=== PATIENT | male | born 1955 | race Caucasian/White ===

== ENCOUNTER 2016-08-03 20:42 | Emergency (ER) | payer MEDICAID, OTHER ==
[2016-08-03] MEDS ORDERED: ACETAMINOPHEN 325 MG TAB As Ordered ONE (22:04)
[2016-08-03] MEDS ORDERED: NORCO 5/325MG TABLET (BULK) As Ordered ONE (23:54)
[2016-08-03] MEDS ORDERED: METHOCARBAMOL 500 MG TAB As Ordered ONE (23:54)
--- NOTE | 2016-08-04 00:05 | EDDOCDS ---
Physician Documentation [facility] Name: Delon Verdugo Age: 61 yrs Sex: Male : 1955 Arrival Date: 08/03/2016 Time: 20:42 Bed TR1 Private MD: Arely Stafford A. Disposition: 08/03/16 23:28 Discharged to Home/Self Care. Impression: Low back pain, Contusion of left hip, Contusion of left shoulder. - Condition is Stable. - Discharge Instructions: Back Pain, Adult, Contusion. - Prescriptions for [place] 5- 325 mg Oral Tablet - take 1 tablet by ORAL route every 6 hours As needed MDD: 4 tabs; 6 tablet. Robaxin- 750 750 mg Oral Tablet - take 1 tablet by ORAL route every 6 hours As needed; 40 tablet. - Medication Reconciliation, Local Pharmacy Hours form. - Follow up: Arely Stafford; When: 2 - 3 days; Reason: Recheck today's complaints, Continuance of care. - Problem is new. - Symptoms have improved. - Notes: USE MEDICATIONS INSTRUCTED, FOLLOW UP WITH YOUR DOCTOR ON FRIDAY, RETURN TO THE ER IF THE SYMPTOMS WORSEN OR BECOME CONCERNING Historical: - Allergies: no known allergies; - Home Meds: 1. Glucophage 500 mg Oral tab daily (Last dose: 08/03/2016 07:00) 2. aspirin 81 mg Oral tab 1 tab once daily (Last dose: 08/03/2016 07:00) 3. Tylenol 325 mg Oral tab 2 tabs every 6 hours (Last dose: 08/03/2016 08:00) - PMHx: Diabetes - NIDDM: controlled; - PSHx: Appendectomy; HERNIA REPAIR; - Social history: Smoking status: Patient states was never smoker of tobacco. Patient/guardian denies using alcohol, street drugs, No barriers to communication noted, The patient speaks fluent Cuban, Speaks appropriately for age. - Family history: Not pertinent. - : The pt / caregiver states he / she is not on anticoagulants. Home medication list is obtained from the patient. - Exposure Risk Screening:: None identified. Vital Signs: 08/03 20:43 BP 123 / 75; Pulse 83; Resp 16; Temp 96.9(O); Pulse Ox 96% on R/A; Weight 111.13 kg / elp 245 lbs (R); Height 5 ft. 5 in. (165.10 cm) (R); 08/04 00:04 BP 132 / 58; Pulse 70; Resp 20; Temp 98.3(O); Pulse Ox 96% on R/A; Pain 4/10; tm5 08/03 20:43 Body Mass Index 40.77 (111.13 kg, 165.10 cm) elp MDM: 08/03 22:02 Acetaminophen Tablet 650 mg PO once ordered. ck7 22:04 Hip,AP,LAT to include Pelvis Ordered. EDMS 22:04 Spine. Lumbosacral, Complete Ordered. EDMS 22:04 Shoulder, Complete Ordered. EDMS 23:29 HYDROcodone-acetaminophen 4 pack- 5 mg-325 mg 1 packets PO Per package directions; ck7 Dispense with patient. 1 po q4h prn for pain ordered. 23:29 Methocarbamol 1 grams PO once; please dispense to go home with ordered. ck7 23:46 Financial registration complete. hs2 Administered Medications: 22:06 Drug: Acetaminophen 650 mg [acetaminophen 325 mg tablet (2 tabs)] Route: PO; ttb 08/04 00:00 Follow up: Response: No Adverse Reaction; Pain is decreased tm5 00:00 Drug: Methocarbamol 1 grams [methocarbamol 500 mg tablet (2 tabs)] {Note: given to pt tm5 to take at home due to him driving himself home .} Route: PO; 00:01 Follow up: Response: Med's dispensed home tm5 00:02 Drug: HYDROcodone-acetaminophen 4 pack- 1 packets [hydrocodone 5 mg-acetaminophen 325 tm5 mg tablet (1 tabs)] {Co-Signature: af2 (Rose Barroso RN).} {Note: dispensed home with pt due to him driving himself home.} Route: PO; 00:02 Follow up: Response: Med's dispensed home tm5 Signatures: Dispatcher [employer] EDChauncey Bryan, RPA-C RPA-Cck7 Shirley Esteban RN RN ttb Jayda Huynh, Reg Reg hs2 Cadence Gillette RN RN tm5 Rose Barroso RN af2 MTDD
--- NOTE | 2016-08-04 00:06 | EDDOCDS ---
Nurse's Notes [facility] Name: Delon Verdugo Age: 61 yrs Sex: Male : 1955 Arrival Date: 08/03/2016 Time: 20:42 Bed TR1 Private MD: Arely Stafford A. Diagnosis: Low back pain;Contusion of left hip;Contusion of left shoulder Presentation: 08/03 20:59 Presenting complaint: Patient states: pt fell at work on Friday. Left hip and left ttb shoulder pain since them. Adult Sepsis Screening: The patient does not have new or worsening altered mentation. Patient's respiratory rate is less than 22. Systolic blood pressure is greater than 100. Patient has a qSOFA score of 0- Negative Sepsis Screen. Suicide/Homicide risk assessment- the patient denies having any suicidal and/or homicidal ideations and does not present with any other emotional, behavioral or mental health complaints. Status: Patient is not a environmental services aide or dependent. Transition of care: patient was not received from another setting of care. 20:59 Acuity: DANIEL Level 4 ttb 20:59 Method Of Arrival: Walkin/Carried/Asstd ttb Triage Assessment: 21:01 General: Appears in no apparent distress, well nourished, well groomed, Behavior is ttb appropriate for age, cooperative, pleasant. Pain: Location: left hip. HIV screening NA for this visit Offered previously. Neurological: Level of Consciousness is awake, alert. Cardiovascular: Chest pain is denied. Respiratory: No deficits noted. Airway is patent Denies cough, shortness of breath. Derm: Skin is normal. Musculoskeletal: Range of motion limited in left hip d/t pain. Injury Description: pt fell from standing. Historical: - Allergies: no known allergies; - Home Meds: 1. Glucophage 500 mg Oral tab daily (Last dose: 08/03/2016 07:00) 2. aspirin 81 mg Oral tab 1 tab once daily (Last dose: 08/03/2016 07:00) 3. Tylenol 325 mg Oral tab 2 tabs every 6 hours (Last dose: 08/03/2016 08:00) - PMHx: Diabetes - NIDDM: controlled; - PSHx: Appendectomy; HERNIA REPAIR; - Social history: Smoking status: Patient states was never smoker of tobacco. Patient/guardian denies using alcohol, street drugs, No barriers to communication noted, The patient speaks fluent Uzbek, Speaks appropriately for age. - Family history: Not pertinent. - : The pt / caregiver states he / she is not on anticoagulants. Home medication list is obtained from the patient. - Exposure Risk Screening:: None identified. Screenin/12 00:03 Screening information is obtained from the patient. Fall risk: No risks identified. tm5 Assistance ADL's: requires no assistance with activities of daily living. Abuse/DV Screen: The patient / caregiver reports he/she is: not in a situation that causes fear, pain or injury. Nutritional screening: No deficits noted. Advance Directives: Currently, there is no health care proxy. There is no active DNR order. home support is adequate. Vital Signs: 08/03 20:43 BP 123 / 75; Pulse 83; Resp 16; Temp 96.9(O); Pulse Ox 96% on R/A; Weight 111.13 kg elp (R); Height 5 ft. 5 in. (165.10 cm) (R); 08/04 00:04 BP 132 / 58; Pulse 70; Resp 20; Temp 98.3(O); Pulse Ox 96% on R/A; Pain 4/10; tm5 08/03 20:43 Body Mass Index 40.77 (111.13 kg, 165.10 cm) el Vitals: 08/03 20:43 Log In Time: August 03, 2016 at 20:41. [facility] ED Course: 20:43 Patient visited by Sheila Arndt PCA. elp 20:43 Arely Stafford is Private Physician. elp 20:43 Patient moved to Waiting elp 20:44 Patient visited by Sheila Arndt PCA. elp 20:44 Patient moved to Pre RCE elp 21:00 Triage Initiated ttb 21:18 Patient moved to Triage 3 rs3 21:20 Patient moved to Triage 2 kmg1 21:47 [facility] ck7 21:47 Bk Roger DO is Attending Physician. ck7 21:47 Patient visited by Chauncey Nicholson RPA-C. ck7 22:11 Patient moved to TR4 kmg1 22:55 Patient visited by Chauncey Nicholson RPA-C. ck7 23:28 Patient visited by Chauncey Nicholson RPA-C. ck7 23:28 Arely Stafford is Referral Physician. ck7 23:50 Patient moved to PR1 / 25 kmg1 02 00:01 Patient moved to TR1 tm5 00:03 The patient / caregiver is instructed regarding the plan of care and ED course. tm5 00:03 No IV's were initiated during this patient's visit. No procedures done that require tm5 assistance. Administered Medications: 08/03 22:06 Drug: Acetaminophen 650 mg [acetaminophen 325 mg tablet (2 tabs)] Route: PO; ttb 02 00:00 Follow up: Response: No Adverse Reaction; Pain is decreased tm5 00:00 Drug: Methocarbamol 1 grams [methocarbamol 500 mg tablet (2 tabs)] {Note: given to pt tm5 to take at home due to him driving himself home .} Route: PO; 00:01 Follow up: Response: Med's dispensed home tm5 00:02 Drug: HYDROcodone-acetaminophen 4 pack- 1 packets [hydrocodone 5 mg-acetaminophen 325 tm5 mg tablet (1 tabs)] {Co-Signature: af2 (Rose Barroso RN).} {Note: dispensed home with pt due to him driving himself home.} Route: PO; 00:02 Follow up: Response: Med's dispensed home tm5 Order Results: There are currently no results for this order. Outcome: 08/03 23:28 Discharge ordered by Provider. 08/04 00:03 Discharge Assessment: Patient awake, alert and oriented x 3. No cognitive and/or tm5 functional deficits noted. Patient verbalized understanding of disposition instructions. patient administered narcotics - no. The following High Risk Discharge criteria are identified: None. Discharged to home ambulatory. Condition: good Condition: stable. No special radiology studies were completed. Property :Personal belongings accompany Pt. 00:04 Patient left the ED. tm5 Signatures: Sarah Howell RN RN [facility] [place] Kate Castro RN RN rs3 Chauncey Nicholson RPA-C RPA-Cck7 Shirley Esteban RN RN ttb Sheila Arndt, URGENT CARE PHYSICIAN ASSISTANT URGENT CARE PHYSICIAN ASSISTANT elp Matice,Cadence,RN RN tm5 Rose Barroso RN af2 SOPHIAD
--- NOTE | 2016-08-04 13:53 | REP ---
LUMBAR SPINE COMPLETE: 08/03/2016. Clinical history: Back pain. Comparison: 10/15/2006. Findings: Five views are provided. There appear to be some metal anchors for ventral mesh hernia graft overlying the lower lumbar region as a new finding compared to 2006. Pedicle, spinous and transverse processes are intact. Lower thoracic levels and visualized ribs without acute finding. There are marginal osteophytes at multiple levels in the lumbar and lower thoracic spine. SI joints, sacral ala and foramina intact. There is facet arthritis at L4-5 and L5 and S1. No spondylolysis or spondylolisthesis noted. The normal lordosis maintained. Disc space and vertebral body heights normal. Impression: 1. Degenerative disc changes with small marginal osteophytes lower lumbar and lower thoracic region without compression deformity or disc space narrowing. 2. Facet arthropathy lower lumbar spine. No spondylolysis. Signed by Christiano Portillo MD 08/04/2016 07:23 P
--- NOTE | 2016-08-04 13:54 | REP ---
AP PELVIS AND LEFT HIP: 08/03/2016. Clinical history: Hip pain. Findings: There were no prior studies. The AP pelvis shows pelvic ring intact. SI joints, sacral ala and foramina intact. Iliac wings, acetabuli, pubic rami and symphysis pubis normal. There is slight narrowing of the hip joint spaces bilaterally without fracture, AVN or focal lesion. Left hip: The dedicated views of the left hip shows slight spurring of the femoral head on the frog-leg view representing very minimal degenerative change along with that narrowing of the joint space, however, there is no AVN, fracture or destructive lesion. No abnormal soft tissue calcifications. Impression: 1. Degenerative changes of the hip and lower lumbar spine without fracture, avulsion, AVN or other acute finding. Signed by Christiano Portillo MD 08/04/2016 07:24 P
--- NOTE | 2016-08-04 13:55 | REP ---
LEFT SHOULDER, COMPLETE: 08/03/2016. Clinical history: Shoulder pain. Findings: No prior study. AC joint shows narrowing inferiorly with spurs inferiorly and superiorly. No elevation of the clavicle in relationship to the acromion. No clavicular, rib, scapula or humeral fracture visible. There are minor degenerative changes at the inferior aspect of the glenohumeral joint without subluxation or dislocation. No abnormal soft-tissue calcification. Impression: 1. AC joint and glenohumeral joint degenerative changes as described. No fracture, avulsion or other acute finding. Signed by Christiano Portillo MD 08/04/2016 07:24 P
--- NOTE | 2016-08-06 01:05 | EDDOCDS ---
Physician Documentation [facility] Name: Delon Verdugo Age: 61 yrs Sex: Male : 1955 Arrival Date: 08/03/2016 Time: 20:42 Bed TR1 Private MD: Arely Stafford A. Disposition: 08/03/16 23:28 Discharged to Home/Self Care. Impression: Low back pain, Contusion of left hip, Contusion of left shoulder. - Condition is Stable. - Discharge Instructions: Back Pain, Adult, Contusion. - Prescriptions for [place] 5- 325 mg Oral Tablet - take 1 tablet by ORAL route every 6 hours As needed MDD: 4 tabs; 6 tablet. Robaxin- 750 750 mg Oral Tablet - take 1 tablet by ORAL route every 6 hours As needed; 40 tablet. - Medication Reconciliation, Local Pharmacy Hours form. - Follow up: Arely Stafford; When: 2 - 3 days; Reason: Recheck today's complaints, Continuance of care. - Problem is new. - Symptoms have improved. - Notes: USE MEDICATIONS INSTRUCTED, FOLLOW UP WITH YOUR DOCTOR ON FRIDAY, RETURN TO THE ER IF THE SYMPTOMS WORSEN OR BECOME CONCERNING Historical: - Allergies: no known allergies; - Home Meds: 1. Glucophage 500 mg Oral tab daily (Last dose: 08/03/2016 07:00) 2. aspirin 81 mg Oral tab 1 tab once daily (Last dose: 08/03/2016 07:00) 3. Tylenol 325 mg Oral tab 2 tabs every 6 hours (Last dose: 08/03/2016 08:00) - PMHx: Diabetes - NIDDM: controlled; - PSHx: Appendectomy; HERNIA REPAIR; - Social history: Smoking status: Patient states was never smoker of tobacco. Patient/guardian denies using alcohol, street drugs, No barriers to communication noted, The patient speaks fluent Yemeni, Speaks appropriately for age. - Family history: Not pertinent. - : The pt / caregiver states he / she is not on anticoagulants. Home medication list is obtained from the patient. - Exposure Risk Screening:: None identified. Vital Signs: 08/03 20:43 BP 123 / 75; Pulse 83; Resp 16; Temp 96.9(O); Pulse Ox 96% on R/A; Weight 111.13 kg / elp 245 lbs (R); Height 5 ft. 5 in. (165.10 cm) (R); 08/04 00:04 BP 132 / 58; Pulse 70; Resp 20; Temp 98.3(O); Pulse Ox 96% on R/A; Pain 4/10; tm5 08/03 20:43 Body Mass Index 40.77 (111.13 kg, 165.10 cm) elp MDM: 08/03 22:02 Acetaminophen Tablet 650 mg PO once ordered. ck7 22:04 Hip,AP,LAT to include Pelvis Ordered. EDMS 22:04 Spine. Lumbosacral, Complete Ordered. EDMS 22:04 Shoulder, Complete Ordered. EDMS 23:29 HYDROcodone-acetaminophen 4 pack- 5 mg-325 mg 1 packets PO Per package directions; ck7 Dispense with patient. 1 po q4h prn for pain ordered. 23:29 Methocarbamol 1 grams PO once; please dispense to go home with ordered. ck7 23:46 Financial registration complete. hs2 08/04 01:05 [facility] Payment Agreement was scanned into [employer] and attached to record. hs2 17:38 T-Sheet-- Draft Copy was scanned into [employer] and attached to record. klr Administered Medications: 08/03 22:06 Drug: Acetaminophen 650 mg [acetaminophen 325 mg tablet (2 tabs)] Route: PO; ttb 08/04 00:00 Follow up: Response: No Adverse Reaction; Pain is decreased tm5 00:00 Drug: Methocarbamol 1 grams [methocarbamol 500 mg tablet (2 tabs)] {Note: given to pt tm5 to take at home due to him driving himself home .} Route: PO; 00:01 Follow up: Response: Med's dispensed home tm5 00:02 Drug: HYDROcodone-acetaminophen 4 pack- 1 packets [hydrocodone 5 mg-acetaminophen 325 tm5 mg tablet (1 tabs)] {Co-Signature: af2 (Rose Barroso RN).} {Note: dispensed home with pt due to him driving himself home.} Route: PO; 00:02 Follow up: Response: Med's dispensed home tm5 Signatures: Dispatcher [employer] EDMS Chauncey Nicholson, REANNA-C RPA-CckShirley Hernandez, RN RN ttb Jayda Huynh, Reg Reg hs2 Nirali Gascar Cadence Gillette RN RN tm5 Rose Barroso RN af2 The chart was reviewed and I authenticate all verbal orders and agree with the evaluation and treatment provided.Attachments: 01:05 [facility] Payment Agreement hs2 17:38 T-Sheet-- Draft Copy klr Chart Complete MTDD
--- NOTE | 2016-08-06 01:05 | EDDOCDS ---
Physician Documentation [facility] Name: Delon Verdugo Age: 61 yrs Sex: Male : 1955 Arrival Date: 08/03/2016 Time: 20:42 Bed TR1 Private MD: Arely Stafford A. Disposition: 08/03/16 23:28 Discharged to Home/Self Care. Impression: Low back pain, Contusion of left hip, Contusion of left shoulder. - Condition is Stable. - Discharge Instructions: Back Pain, Adult, Contusion. - Prescriptions for [place] 5- 325 mg Oral Tablet - take 1 tablet by ORAL route every 6 hours As needed MDD: 4 tabs; 6 tablet. Robaxin- 750 750 mg Oral Tablet - take 1 tablet by ORAL route every 6 hours As needed; 40 tablet. - Medication Reconciliation, Local Pharmacy Hours form. - Follow up: Arely tSafford; When: 2 - 3 days; Reason: Recheck today's complaints, Continuance of care. - Problem is new. - Symptoms have improved. - Notes: USE MEDICATIONS INSTRUCTED, FOLLOW UP WITH YOUR DOCTOR ON FRIDAY, RETURN TO THE ER IF THE SYMPTOMS WORSEN OR BECOME CONCERNING Historical: - Allergies: no known allergies; - Home Meds: 1. Glucophage 500 mg Oral tab daily (Last dose: 08/03/2016 07:00) 2. aspirin 81 mg Oral tab 1 tab once daily (Last dose: 08/03/2016 07:00) 3. Tylenol 325 mg Oral tab 2 tabs every 6 hours (Last dose: 08/03/2016 08:00) - PMHx: Diabetes - NIDDM: controlled; - PSHx: Appendectomy; HERNIA REPAIR; - Social history: Smoking status: Patient states was never smoker of tobacco. Patient/guardian denies using alcohol, street drugs, No barriers to communication noted, The patient speaks fluent Scottish, Speaks appropriately for age. - Family history: Not pertinent. - : The pt / caregiver states he / she is not on anticoagulants. Home medication list is obtained from the patient. - Exposure Risk Screening:: None identified. Vital Signs: 08/03 20:43 BP 123 / 75; Pulse 83; Resp 16; Temp 96.9(O); Pulse Ox 96% on R/A; Weight 111.13 kg / elp 245 lbs (R); Height 5 ft. 5 in. (165.10 cm) (R); 08/04 00:04 BP 132 / 58; Pulse 70; Resp 20; Temp 98.3(O); Pulse Ox 96% on R/A; Pain 4/10; tm5 08/03 20:43 Body Mass Index 40.77 (111.13 kg, 165.10 cm) elp MDM: 08/03 22:02 Acetaminophen Tablet 650 mg PO once ordered. ck7 22:04 Hip,AP,LAT to include Pelvis Ordered. EDMS 22:04 Spine. Lumbosacral, Complete Ordered. EDMS 22:04 Shoulder, Complete Ordered. EDMS 23:29 HYDROcodone-acetaminophen 4 pack- 5 mg-325 mg 1 packets PO Per package directions; ck7 Dispense with patient. 1 po q4h prn for pain ordered. 23:29 Methocarbamol 1 grams PO once; please dispense to go home with ordered. ck7 23:46 Financial registration complete. hs2 08/04 01:05 [facility] Payment Agreement was scanned into [employer] and attached to record. hs2 17:38 T-Sheet-- Draft Copy was scanned into [employer] and attached to record. klr Administered Medications: 08/03 22:06 Drug: Acetaminophen 650 mg [acetaminophen 325 mg tablet (2 tabs)] Route: PO; ttb 08/04 00:00 Follow up: Response: No Adverse Reaction; Pain is decreased tm5 00:00 Drug: Methocarbamol 1 grams [methocarbamol 500 mg tablet (2 tabs)] {Note: given to pt tm5 to take at home due to him driving himself home .} Route: PO; 00:01 Follow up: Response: Med's dispensed home tm5 00:02 Drug: HYDROcodone-acetaminophen 4 pack- 1 packets [hydrocodone 5 mg-acetaminophen 325 tm5 mg tablet (1 tabs)] {Co-Signature: af2 (Rose Barroso RN).} {Note: dispensed home with pt due to him driving himself home.} Route: PO; 00:02 Follow up: Response: Med's dispensed home tm5 Signatures: Dispatcher [employer] EDMS Chauncey Nicholson, REANNA-C RPA-CckShirley Hernandez, RN RN ttb Jayda Huynh, Reg Reg hs2 Nirali Gascar Cadence Gillette RN RN tm5 Rose Barroso RN af2 The chart was reviewed and I authenticate all verbal orders and agree with the evaluation and treatment provided.Attachments: 01:05 [facility] Payment Agreement hs2 17:38 T-Sheet-- Draft Copy klr Chart Complete MTDD
--- NOTE | 2016-08-06 01:06 | EDDOCDS ---
Nurse's Notes [facility] Name: Delon Verdugo Age: 61 yrs Sex: Male : 1955 Arrival Date: 08/03/2016 Time: 20:42 Bed TR1 Private MD: Arely Stafford A. Diagnosis: Low back pain;Contusion of left hip;Contusion of left shoulder Presentation: 08/03 20:59 Presenting complaint: Patient states: pt fell at work on Friday. Left hip and left ttb shoulder pain since them. Adult Sepsis Screening: The patient does not have new or worsening altered mentation. Patient's respiratory rate is less than 22. Systolic blood pressure is greater than 100. Patient has a qSOFA score of 0- Negative Sepsis Screen. Suicide/Homicide risk assessment- the patient denies having any suicidal and/or homicidal ideations and does not present with any other emotional, behavioral or mental health complaints. 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 Transition of care: patient was not received from another setting of care. 20:59 Acuity: DANIEL Level 4 ttb 20:59 Method Of Arrival: Walkin/Carried/Asstd ttb Triage Assessment: 21:01 General: Appears in no apparent distress, well nourished, well groomed, Behavior is ttb appropriate for age, cooperative, pleasant. Pain: Location: left hip. HIV screening NA for this visit Offered previously. Neurological: Level of Consciousness is awake, alert. Cardiovascular: Chest pain is denied. Respiratory: No deficits noted. Airway is patent Denies cough, shortness of breath. Derm: Skin is normal. Musculoskeletal: Range of motion limited in left hip d/t pain. Injury Description: pt fell from standing. Historical: - Allergies: no known allergies; - Home Meds: 1. Glucophage 500 mg Oral tab daily (Last dose: 08/03/2016 07:00) 2. aspirin 81 mg Oral tab 1 tab once daily (Last dose: 08/03/2016 07:00) 3. Tylenol 325 mg Oral tab 2 tabs every 6 hours (Last dose: 08/03/2016 08:00) - PMHx: Diabetes - NIDDM: controlled; - PSHx: Appendectomy; HERNIA REPAIR; - Social history: Smoking status: Patient states was never smoker of tobacco. Patient/guardian denies using alcohol, street drugs, No barriers to communication noted, The patient speaks fluent [place]ian, Speaks appropriately for age. - Family history: Not pertinent. - : The pt / caregiver states he / she is not on anticoagulants. Home medication list is obtained from the patient. - Exposure Risk Screening:: None identified. Screenin/12 00:03 Screening information is obtained from the patient. Fall risk: No risks identified. tm5 Assistance ADL's: requires no assistance with activities of daily living. Abuse/DV Screen: The patient / caregiver reports he/she is: not in a situation that causes fear, pain or injury. Nutritional screening: No deficits noted. Advance Directives: Currently, there is no health care proxy. There is no active DNR order. home support is adequate. Vital Signs: 08/03 20:43 BP 123 / 75; Pulse 83; Resp 16; Temp 96.9(O); Pulse Ox 96% on R/A; Weight 111.13 kg elp (R); Height 5 ft. 5 in. (165.10 cm) (R); 08/04 00:04 BP 132 / 58; Pulse 70; Resp 20; Temp 98.3(O); Pulse Ox 96% on R/A; Pain 4/10; tm5 08/03 20:43 Body Mass Index 40.77 (111.13 kg, 165.10 cm) el Vitals: 08/03 20:43 Log In Time: August 03, 2016 at 20:41. [facility] ED Course: 20:43 Patient visited by Sheila Arndt PCA. elp 20:43 Arely Stafford is Private Physician. elp 20:43 Patient moved to Waiting elp 20:44 Patient visited by Sheila Arndt PCA. elp 20:44 Patient moved to Pre RCE elp 21:00 Triage Initiated ttb 21:18 Patient moved to Triage 3 rs3 21:20 Patient moved to Triage 2 kmg1 21:47 Chauncey Nicholson R[facility]-C is [facility]. ck7 21:47 Bk Roger DO is Attending Physician. ck7 21:47 Patient visited by Chauncey Nicholson RPA-C. ck7 22:11 Patient moved to TR4 kmg1 22:55 Patient visited by Chauncey Nicholson RPA-C. ck7 23:28 Patient visited by Chauncey Nicholson RPA-C. ck7 23:28 Arely Stafford is Referral Physician. ck7 23:50 Patient moved to PR1 / 25 kmg1 0212 00:01 Patient moved to TR1 tm5 00:03 The patient / caregiver is instructed regarding the plan of care and ED course. tm5 00:03 No IV's were initiated during this patient's visit. No procedures done that require tm5 assistance. 01:05 [facility] Payment Agreement was scanned into [employer] and attached to record. hs2 13:56 Spine. Lumbosacral, Complete Returned. EDMS 13:56 Hip,AP,LAT to include Pelvis Returned. EDMS 13:56 Shoulder, Complete Returned. EDMS 17:38 T-Sheet-- Draft Copy was scanned into [employer] and attached to record. klr Administered Medications: 08/03 22:06 Drug: Acetaminophen 650 mg [acetaminophen 325 mg tablet (2 tabs)] Route: PO; ttb 08/04 00:00 Follow up: Response: No Adverse Reaction; Pain is decreased tm5 00:00 Drug: Methocarbamol 1 grams [methocarbamol 500 mg tablet (2 tabs)] {Note: given to pt tm5 to take at home due to him driving himself home .} Route: PO; 00:01 Follow up: Response: Med's dispensed home tm5 00:02 Drug: HYDROcodone-acetaminophen 4 pack- 1 packets [hydrocodone 5 mg-acetaminophen 325 tm5 mg tablet (1 tabs)] {Co-Signature: af2 (Rose Barroso RN).} {Note: dispensed home with pt due to him driving himself home.} Route: PO; 00:02 Follow up: Response: Med's dispensed home tm5 Order Results: Radiology Order: Hip,AP,LAT to include Pelvis Test: Hip,AP,LAT to include Pelvis REASON FOR EXAMINATION: Deformity/Swelling; AP PELVIS AND LEFT HIP: 08/03/2016.; ; Clinical history: Hip pain.; ; Findings: There were no prior studies. The AP pelvis shows pelvic ring intact.; SI joints, sacral ala and foramina intact. Iliac wings, acetabuli, pubic rami; and symphysis pubis normal. There is slight narrowing of the hip joint spaces; bilaterally without fracture, AVN or focal lesion.; ; Left hip: The dedicated views of the left hip shows slight spurring of the; femoral head on the frog-leg view representing very minimal degenerative change; along with that narrowing of the joint space, however, there is no AVN, fracture; or destructive lesion. No abnormal soft tissue calcifications.; ; Impression:; ; 1. Degenerative changes of the hip and lower lumbar spine without fracture,; avulsion, AVN or other acute finding.; ; ; Signed by; Christiano Portillo MD 08/04/2016 07:24 P; Radiology Order: Spine. Lumbosacral, Complete Test: Spine. Lumbosacral, Complete REASON FOR EXAMINATION: Deformity/Swelling; LUMBAR SPINE COMPLETE: 08/03/2016.; ; Clinical history: Back pain.; ; Comparison: 10/15/2006.; ; Findings: Five views are provided. There appear to be some metal anchors for; ventral mesh hernia graft overlying the lower lumbar region as a new finding; compared to 2006. Pedicle, spinous and transverse processes are intact. Lower; thoracic levels and visualized ribs without acute finding. There are marginal; osteophytes at multiple levels in the lumbar and lower thoracic spine. SI; joints, sacral ala and foramina intact. There is facet arthritis at L4-5 and L5; and S1. No spondylolysis or spondylolisthesis noted. The normal lordosis; maintained.; ; Disc space and vertebral body heights normal.; ; Impression:; ; 1. Degenerative disc changes with small marginal osteophytes lower lumbar and; lower thoracic region without compression deformity or disc space narrowing.; ; 2. Facet arthropathy lower lumbar spine. No spondylolysis.; ; ; Signed by; Christiano Portillo MD 08/04/2016 07:23 P; Radiology Order: Shoulder, Complete Test: Shoulder, Complete REASON FOR EXAMINATION: Deformity/Swelling; LEFT SHOULDER, COMPLETE: 08/03/2016.; ; Clinical history: Shoulder pain.; ; Findings: No prior study. AC joint shows narrowing inferiorly with spurs; inferiorly and superiorly. No elevation of the clavicle in relationship to the; acromion. No clavicular, rib, scapula or humeral fracture visible. There are; minor degenerative changes at the inferior aspect of the glenohumeral joint; without subluxation or dislocation. No abnormal soft-tissue calcification.; ; Impression:; ; 1. AC joint and glenohumeral joint degenerative changes as described. No; fracture, avulsion or other acute finding.; ; ; Signed by; Christiano Portillo MD 08/04/2016 07:24 P; Outcome: 08/03 23:28 Discharge ordered by Provider. ck7 08/04 00:03 Discharge Assessment: Patient awake, alert and oriented x 3. No cognitive and/or tm5 functional deficits noted. Patient verbalized understanding of disposition instructions. patient administered narcotics - no. The following High Risk Discharge criteria are identified: None. Discharged to home ambulatory. Condition: good Condition: stable. No special radiology studies were completed. Property :Personal belongings accompany Pt. 00:04 Patient left the ED. tm5 Signatures: Dispatcher [employer] EDMS Sarah Howell, RN RN kmg1 Kate Castro RN RN rs3 Chauncey Nicholson, RPA-C [id number]-[id number] Shirley Esteban RN RN ttb Sheila Arndt, VESSEL BUILDER VESSEL BUILDER elp Jayda Huynh, Reg Reg hs2 Nirali Gasca Tonya, RN RN tm5 Rose Barroso RN af2 Chart Complete MTDD
== END 2016-08-04 00:04 | disposition home or self-care (01) ==
LOC: M ED 20:42
DX: S70.02XA Contusion of left hip, initial encounter (principal); S40.012A Contusion of left shoulder, initial encounter; W00.0XXA Fall on same level due to ice and snow, initial encounter; Y93.01 Activity, walking, marching and hiking; Y99.0 Civilian activity done for income or pay; E11.9 Type 2 diabetes mellitus without complications; Z79.82 Long term (current) use of aspirin; Z79.84 Long term (current) use of oral hypoglycemic drugs

== ENCOUNTER 2017-03-05 14:05 | Emergency (ER) | payer MEDICAID, OTHER, SELFPAY ==
[~2017-03-05] VITALS: Ht 165.1 cm; Wt 109.1 kg
[2017-03-05] MEDS ORDERED: METF10004 PO (14:32)
[2017-03-05] MEDS ORDERED: ASPI81TA85 PO (14:32)
[2017-03-05] MEDS ORDERED: ADVI200T PO (14:33)
[2017-03-05] MEDS ORDERED: PRED20TA PO (17:13)
[2017-03-05 17:24] VITALS: BP 141/81
--- NOTE | 2017-03-06 12:02 | REP ---
Clinical: Pain. Technique: AP, lateral, bilateral oblique and sunrise views of the right and left knee. Findings: Age-related changes are appreciated without significant, overt osteoarthritic degenerative findings. No acute fracture dislocation. No definite effusion. Impression: Symmetric age-related changes. Signed by Evaristo Stallworth MD 03/06/2017 11:54 A
== END 2017-03-05 17:49 | disposition home or self-care (01) ==
LOC: M ED 14:05
DX: M17.0 Bilateral primary osteoarthritis of knee (principal); M25.561 Pain in right knee; M25.562 Pain in left knee; E11.9 Type 2 diabetes mellitus without complications; Z79.84 Long term (current) use of oral hypoglycemic drugs; Z79.82 Long term (current) use of aspirin

== ENCOUNTER → 2017-03-05 | Outpatient (REF) | payer MEDICAID, OTHER, SELFPAY ==
[~2017-03-05] MED LIST: ADVI200T PO; ASPI81TA85 PO; METF10004 PO; PRED20TA PO
[2017-03-05 10:35] LABS: CALCIUM OXALATE CRYSTALS SMALL
[2017-03-05 10:57] LABS: ANION GAP 9 MEQ/L (8-16); BLOOD UREA NITROGEN 15 MG/DL (7-18); CALCIUM LEVEL 8.8 MG/DL (8.8-10.2); CARBON DIOXIDE LEVEL 27 MEQ/L (21-32); CHLORIDE LEVEL 105 MEQ/L (98-107); CREATININE FOR GFR 0.94 MG/DL (0.70-1.30); GLOMERULAR FILTRATION RATE > 60.0 (>49); GLUCOSE, FASTING 205 MG/DL (80-110); POTASSIUM SERUM 4.2 MEQ/L (3.5-5.1); SODIUM LEVEL 141 MEQ/L (136-145)
== END ==
LOC: M SFHCPLAZ 08:15
PROVIDERS: ATTEND Family Medicine
DX: E11.9 Type 2 diabetes mellitus without complications (principal)

== ENCOUNTER → 2017-03-12 | Outpatient (CLI) | payer MEDICAID, SELFPAY ==
--- NOTE | 2017-03-12 13:26 | REP ---
Right shoulder three views: There is acromioclavicular osteoarthritis. The glenohumeral articulation is unremarkable . Mineralization is normal. There is no fracture or dislocation. There are no calcifications or foreign bodies. Impression: Acromioclavicular osteoarthritis. Signed by John Adkins MD 03/12/2017 12:58 P
== END ==
LOC: M LAB 12:00
PROVIDERS: ATTEND Family Medicine
DX: M25.511 Pain in right shoulder (principal)

== ENCOUNTER → 2017-05-28 | Outpatient (REF) | payer OTHER ==
[2017-05-28 14:50] LABS: ANION GAP 10 MEQ/L (8-16); BLOOD UREA NITROGEN 19 MG/DL (7-18); CALCIUM LEVEL 9.4 MG/DL (8.8-10.2); CARBON DIOXIDE LEVEL 25 MEQ/L (21-32); CHLORIDE LEVEL 101 MEQ/L (98-107); CREATININE FOR GFR 0.96 MG/DL (0.70-1.30); GLOMERULAR FILTRATION RATE > 60.0 (>49); GLUCOSE, FASTING 317 MG/DL (80-110); POTASSIUM SERUM 4.3 MEQ/L (3.5-5.1); SODIUM LEVEL 136 MEQ/L (136-145)
== END ==
LOC: M SFHCPLAZ 11:44
PROVIDERS: ATTEND Family Medicine
DX: E11.9 Type 2 diabetes mellitus without complications (principal)

== ENCOUNTER → 2017-08-25 | Outpatient (REF) | payer OTHER ==
[2017-08-25 15:03] LABS: ESTIMATED AVERAGE GLUCOSE 214 MG/DL (60-110); HEMOGLOBIN A1c 9.1 %
== END ==
LOC: M SFHCPLAZ 10:45
DX: E11.9 Type 2 diabetes mellitus without complications (principal)
CPT/HCPCS: 83036

== ENCOUNTER 2017-10-06 16:44 | Emergency (ER) | payer OTHER | END 2017-10-06 19:37 | disposition home or self-care (01) | LOC: M ED 16:44 | DX: M25.511 Pain in right shoulder (principal); G89.29 Other chronic pain; E11.9 Type 2 diabetes mellitus without complications; Z87.891 Personal history of nicotine dependence; Z79.84 Long term (current) use of oral hypoglycemic drugs; Z79.82 Long term (current) use of aspirin | CPT/HCPCS: 99283 ==

== ENCOUNTER → 2017-12-26 | Outpatient (REF) | payer OTHER | LOC: M SFHCPLAZ 11:57 | DX: E11.9 Type 2 diabetes mellitus without complications (principal) ==

== ENCOUNTER → 2018-01-10 | Outpatient (CLI) | payer OTHER ==
[2018-01-10 10:52] LABS: ANION GAP 7 MEQ/L (8-16); BLOOD UREA NITROGEN 20 MG/DL (7-18); CALCIUM LEVEL 8.3 MG/DL (8.8-10.2); CARBON DIOXIDE LEVEL 28 MEQ/L (21-32); CHLORIDE LEVEL 106 MEQ/L (98-107); CHOLESTEROL LEVEL 91 MG/DL (<200); CHOLESTEROL RISK RATIO 2.459 (<5); CREATININE FOR GFR 0.88 MG/DL (0.70-1.30); GLOMERULAR FILTRATION RATE > 60.0 (>49); GLUCOSE, FASTING 224 MG/DL (70-100); HDL CHOLESTEROL 37 MG/DL (>40); LDL CHOLESTEROL 28.2 MG/DL (<100); NON-HDL-C 54 MG/DL; POTASSIUM SERUM 4.4 MEQ/L (3.5-5.1); SODIUM LEVEL 141 MEQ/L (136-145); TRIGLYCERIDES LEVEL 129 MG/DL (<150)
[2018-01-10 11:10] LABS: ESTIMATED AVERAGE GLUCOSE 192 MG/DL (60-110); HEMOGLOBIN A1c 8.3 %
== END ==
LOC: M LAB 09:57
DX: E11.9 Type 2 diabetes mellitus without complications (principal)
CPT/HCPCS: 83036

== ENCOUNTER → 2018-03-23 | Outpatient (CLI) | payer OTHER | LOC: M RAD 16:55 | DX: S46.911A Strain of unspecified muscle, fascia and tendon at shoulder and upper arm level, right arm, initial encounter (principal); M19.011 Primary osteoarthritis, right shoulder; M25.411 Effusion, right shoulder; X58.XXXA Exposure to other specified factors, initial encounter; Y92.9 Unspecified place or not applicable | CPT/HCPCS: 73221 ==

== ENCOUNTER → 2018-05-13 | Outpatient (CLI) | payer OTHER | LOC: M SLEEP HO 11:56 | DX: G47.33 Obstructive sleep apnea (adult) (pediatric) (principal) | CPT/HCPCS: G0399 ==

== ENCOUNTER → 2018-05-29 | Outpatient (CLI) | payer OTHER ==
[2018-05-29 13:04] LABS: ESTIMATED AVERAGE GLUCOSE 298 MG/DL (60-110)
== END ==
LOC: M LAB 11:43
DX: E11.9 Type 2 diabetes mellitus without complications (principal)
CPT/HCPCS: 83036

== ENCOUNTER → 2018-07-10 | Outpatient (REF) | payer OTHER ==
[~2018-07-10] MED LIST changes: +IBUP-1022 PO
[2018-07-10 16:34] LABS: HEMOGLOBIN A1c 10.2 %
== END ==
LOC: M SFHCPLAZ 12:05
PROVIDERS: ATTEND Family Medicine
DX: E11.9 Type 2 diabetes mellitus without complications (principal)

== ENCOUNTER → 2018-08-18 | Outpatient (CLI) | payer OTHER ==
[2018-08-18 12:45] LABS: BLOOD UREA NITROGEN 20 MG/DL (7-18); CARBON DIOXIDE LEVEL 22 MEQ/L (21-32); CHLORIDE LEVEL 105 MEQ/L (98-107); CREATININE FOR GFR 0.95 MG/DL (0.70-1.30); GLOMERULAR FILTRATION RATE > 60.0 (>49); GLUCOSE, FASTING 139 MG/DL (70-100); POTASSIUM SERUM 4.3 MEQ/L (3.5-5.1); SODIUM LEVEL 138 MEQ/L (136-145)
[2018-08-18 13:14] LABS: MALB URINE SIEMENS 29.2 MG/L; MAU/CREAT RATIO 10.4 MCG/MG (0.0-30.0)
[2018-08-18 15:39] LABS: HEMOGLOBIN A1c 9.4 %
== END ==
LOC: M LAB 10:40
PROVIDERS: ATTEND Obstetrics & Gynecology
DX: E11.9 Type 2 diabetes mellitus without complications (principal)

== ENCOUNTER → 2019-02-01 | Outpatient (CLI) | payer OTHER ==
[2019-02-01 08:52] LABS: BLOOD UREA NITROGEN 18 MG/DL (7-18); CALCIUM LEVEL 9.1 MG/DL (8.8-10.2); CARBON DIOXIDE LEVEL 25 MEQ/L (21-32); CHLORIDE LEVEL 106 MEQ/L (98-107); CHOLESTEROL LEVEL 99 MG/DL (<200); CHOLESTEROL RISK RATIO 2.675 (<5); GLOMERULAR FILTRATION RATE > 60.0 (>49); GLUCOSE, FASTING 194 MG/DL (70-100); HDL CHOLESTEROL 37 MG/DL (>40); LDL CHOLESTEROL 19 MG/DL (<100); NON-HDL-C 62 MG/DL; POTASSIUM SERUM 4.3 MEQ/L (3.5-5.1); SODIUM LEVEL 140 MEQ/L (136-145); TRIGLYCERIDES LEVEL 216 MG/DL (<150)
[2019-02-01 10:35] LABS: HEMOGLOBIN A1c 8.5 %
== END ==
LOC: M LAB 07:31
PROVIDERS: ATTEND Obstetrics & Gynecology
DX: E11.69 Type 2 diabetes mellitus with other specified complication (principal); I10 Essential (primary) hypertension

== ENCOUNTER → 2019-10-08 | Outpatient (REF) | payer MEDICAID ==
[2019-10-08 17:13] LABS: ALBUMIN 3.7 GM/DL (3.2-5.2); ALT/SGPT 33 U/L (12-78); BILIRUBIN,TOTAL 0.6 MG/DL (0.2-1.0); BLOOD UREA NITROGEN 16 MG/DL (7-18); CALCIUM LEVEL 9.2 MG/DL (8.8-10.2); CARBON DIOXIDE LEVEL 25 MEQ/L (21-32); CHLORIDE LEVEL 101 MEQ/L (98-107); CREATININE FOR GFR 1.02 MG/DL (0.70-1.30); GLOMERULAR FILTRATION RATE > 60.0 (>49); GLUCOSE, FASTING 320 MG/DL (70-100); POTASSIUM SERUM 3.5 MEQ/L (3.5-5.1); SODIUM LEVEL 136 MEQ/L (136-145)
[2019-10-08 17:14] LABS: HEMATOCRIT 41.9 % (42.0-52.0); HEMOGLOBIN 14.1 g/dl (13.5-17.5); MEAN CORPUSCULAR HEMOGLOBIN 29.1 pg (27.0-33.0); MEAN CORPUSCULAR HGB CONC 33.7 g/dl (32.0-36.5); MEAN CORPUSCULAR VOLUME 86.4 fl (80.0-96.0); PLATELET COUNT, AUTOMATED 220 10^3/uL (150-450); RED BLOOD COUNT 4.85 10^6/uL (4.30-6.10); WHITE BLOOD COUNT 8.4 10^3/uL (4.0-10.0)
[2019-10-08 17:23] LABS: HEMOGLOBIN A1c 9.3 %
[2019-10-08 17:44] LABS: MALB URINE SIEMENS 12.2 MG/L; MAU/CREAT RATIO 13.1 MCG/MG (0.0-30.0)
== END ==
LOC: M SFHCPLAZ 14:52
DX: E11.9 Type 2 diabetes mellitus without complications (principal)

== ENCOUNTER → 2019-11-03 | Outpatient (CLI) | payer OTHER, MEDICAID ==
[2019-11-03 11:38] LABS: BLOOD UREA NITROGEN 22 MG/DL (7-18); CALCIUM LEVEL 9.5 MG/DL (8.8-10.2); CARBON DIOXIDE LEVEL 27 MEQ/L (21-32); CHLORIDE LEVEL 105 MEQ/L (98-107); CREATININE FOR GFR 0.89 MG/DL (0.70-1.30); GLOMERULAR FILTRATION RATE > 60.0 (>49); GLUCOSE, FASTING 143 MG/DL (70-100); POTASSIUM SERUM 4.3 MEQ/L (3.5-5.1); SODIUM LEVEL 139 MEQ/L (136-145)
== END ==
LOC: M LAB 10:12
PROVIDERS: ATTEND Obstetrics & Gynecology
DX: E11.9 Type 2 diabetes mellitus without complications (principal)

== ENCOUNTER → 2020-01-10 | Outpatient (CLI) | payer OTHER, MEDICAID ==
[~2020-01-10] MED LIST changes: -ASPI81TA85 PO; +ASPI81TA86 PO; +ATOR80TA59; +BASA100I; +LISI-542; +STEG15TA; +TRUL0.5I SQ
[2020-01-10 11:11] LABS: HEMOGLOBIN A1c 7.3 %
[2020-01-10 11:25] LABS: BLOOD UREA NITROGEN 12 MG/DL (7-18); CALCIUM LEVEL 9.4 MG/DL (8.8-10.2); CARBON DIOXIDE LEVEL 27 MEQ/L (21-32); CHLORIDE LEVEL 106 MEQ/L (98-107); CREATININE FOR GFR 1.03 MG/DL (0.70-1.30); GLOMERULAR FILTRATION RATE > 60.0 (>49); GLUCOSE, FASTING 140 MG/DL (70-100); POTASSIUM SERUM 4.2 MEQ/L (3.5-5.1); SODIUM LEVEL 138 MEQ/L (136-145)
== END ==
LOC: M LAB 10:05
PROVIDERS: ATTEND Obstetrics & Gynecology
DX: E11.9 Type 2 diabetes mellitus without complications (principal)

== ENCOUNTER → 2020-03-23 | Outpatient (CLI) | payer OTHER, MEDICAID | LOC: M LABSMTC 11:29 | PROVIDERS: ATTEND Anesthesiology | DX: Z01.812 Encounter for preprocedural laboratory examination (principal); Z20.828 Contact with and (suspected) exposure to other viral communicable diseases | CPT/HCPCS: C9803; U0003 ==

== ENCOUNTER → 2021-10-12 | Outpatient (CLI) | payer MEDICARE, OTHER ==
[~2021-10-12] MED LIST changes: -LISI-542; +LISI5TAB11
[2021-10-12 14:26] LABS: BLOOD UREA NITROGEN 14 MG/DL (7-18); CALCIUM LEVEL 9.2 MG/DL (8.8-10.2); CARBON DIOXIDE LEVEL 27 MEQ/L (21-32); CHLORIDE LEVEL 104 MEQ/L (98-107); CHOLESTEROL LEVEL 217 MG/DL (<200); CHOLESTEROL RISK RATIO 5.166 (<5); CREATININE FOR GFR 0.95 MG/DL (0.70-1.30); GLOMERULAR FILTRATION RATE > 60.0 (>49); GLUCOSE, FASTING 199 MG/DL (70-100); HDL CHOLESTEROL 42 MG/DL (>40); NON-HDL-C 175 MG/DL; POTASSIUM SERUM 3.7 MEQ/L (3.5-5.1); SODIUM LEVEL 137 MEQ/L (136-145); TRIGLYCERIDES LEVEL 663 MG/DL (<150)
[2021-10-12 14:33] LABS: CREATININE, URINE 70.2 MG/DL; MALB URINE SIEMENS 5.5 MG/L; MAU/CREAT RATIO 7.8 MCG/MG (0.0-30.0)
== END ==
LOC: M LAB 13:29
PROVIDERS: ATTEND Student in an Organized Health Care Education/Training Program
DX: E11.69 Type 2 diabetes mellitus with other specified complication (principal)

== ENCOUNTER → 2021-10-30 | Outpatient (REF) | payer MEDICARE | LOC: M SFHCPLAZ 14:46 | PROVIDERS: ATTEND Family Medicine | DX: E11.69 Type 2 diabetes mellitus with other specified complication (principal); E11.9 Type 2 diabetes mellitus without complications ==

== ENCOUNTER → 2021-11-27 | Outpatient (CLI) | payer MEDICARE ==
[2021-11-27 11:21] LABS: HEMOGLOBIN A1c 6.7 %
[2021-11-27 11:26] LABS: CHOLESTEROL LEVEL 214 MG/DL (<200); CHOLESTEROL RISK RATIO 5.095 (<5); HDL CHOLESTEROL 42 MG/DL (>40); NON-HDL-C 172 MG/DL; TRIGLYCERIDES LEVEL 544 MG/DL (<150)
== END ==
LOC: M LAB 10:28
PROVIDERS: ATTEND Student in an Organized Health Care Education/Training Program
DX: E11.69 Type 2 diabetes mellitus with other specified complication (principal)

== ENCOUNTER → 2022-12-09 | Outpatient (REF) | payer MEDICARE | LOC: M SFHCPLAZ 15:35 | PROVIDERS: ATTEND Family Medicine | DX: E11.69 Type 2 diabetes mellitus with other specified complication (principal) ==

== ENCOUNTER 2023-05-01 08:46 | Emergency (ER) | payer MEDICARE ==
[~2023-05-01] VITALS: Ht 165.1 cm; Wt 105.0 kg
[2023-05-01 10:05] LABS: RSV AMPLIFICATION NEGATIVE (NEGATIVE)
[2023-05-01] MEDS ORDERED: BENZ200C70 PO (12:01)
[2023-05-01] MEDS ORDERED: CLAR10CA3 PO (12:01)
[2023-05-01 12:19] VITALS: BP 118/64; TEMP 97.2; O2SAT 98
== END 2023-05-01 12:27 | disposition home or self-care (01) ==
LOC: M ED 08:46
DX: J06.9 Acute upper respiratory infection, unspecified (principal); E66.9 Obesity, unspecified; E11.9 Type 2 diabetes mellitus without complications; I10 Essential (primary) hypertension; Z79.899 Other long term (current) drug therapy

== ENCOUNTER → 2023-05-12 | Outpatient (CLI) | payer MEDICARE ==
[~2023-05-12] MED LIST changes: +BENZ200C70 PO; +CLAR10CA3 PO
[2023-05-12 10:52] LABS: BASO % 0.3 % (0.0-1.0); EOS # 0.2 10^3/uL (0.0-0.5); EOS % 2.1 % (0.0-3.0); HEMATOCRIT 39.1 % (42.0-52.0); HEMOGLOBIN 13.5 g/dl (13.5-17.5); LYMPH # 2.5 10^3/uL (1.5-5.0); LYMPH % 27.7 % (24.0-44.0); MEAN CORPUSCULAR HEMOGLOBIN 30.1 pg (27.0-33.0); MEAN CORPUSCULAR HGB CONC 34.5 g/dl (32.0-36.5); MEAN CORPUSCULAR VOLUME 87.1 fl (80.0-96.0); MONO # 0.6 10^3/uL (0.0-0.8); MONO % 6.2 % (2.0-8.0); NEUTROPHILS # 5.6 10^3/uL (1.5-8.5); NEUTROPHILS % 63.2 % (36.0-66.0); PLATELET COUNT, AUTOMATED 230 10^3/uL (150-450); RED BLOOD COUNT 4.49 10^6/uL (4.30-6.10); WHITE BLOOD COUNT 8.9 10^3/uL (4.0-10.0)
[2023-05-12 11:06] LABS: HEMOGLOBIN A1c 7.7 % (4.0-6.0)
[2023-05-12 11:14] LABS: CREATININE, URINE 157.7 MG/DL; MAU/CREAT RATIO 5.7 MCG/MG (0.0-30.0)
[2023-05-12 11:16] LABS: ALBUMIN 3.6 G/DL (3.2-5.2); ALKALINE PHOSPHATASE 58 U/L (46-116); ALT/SGPT 25 U/L (7.0-40); AST/SGOT 15 U/L (<34); BILIRUBIN,TOTAL 0.5 MG/DL (0.3-1.2); BLOOD UREA NITROGEN 19 MG/DL (9-23); CALCIUM LEVEL 8.7 MG/DL (8.3-10.6); CARBON DIOXIDE LEVEL 25 MMOL/L (20-31); CHLORIDE LEVEL 106 MMOL/L (98-107); CHOLESTEROL LEVEL 111 MG/DL (<200); CHOLESTEROL RISK RATIO 3.11 (<5); CREATININE FOR GFR 0.81 MG/DL (0.70-1.30); GLOMERULAR FILTRATION RATE > 60.0 (>49); GLUCOSE, FASTING 184 MG/DL (74-106); HDL CHOLESTEROL 35.6 MG/DL (>40); LDL CHOLESTEROL 37.2 MG/DL (<100); NON-HDL-C 75.4 MG/DL; POTASSIUM SERUM 4.3 MMOL/L (3.5-5.1); SODIUM LEVEL 140 MMOL/L (136-145); TOTAL PROTEIN 6.6 G/DL (5.7-8.2); TRIGLYCERIDES LEVEL 191 MG/DL (<150)
== END ==
LOC: M LAB 09:29 → M RAD 09:29
PROVIDERS: ATTEND Student in an Organized Health Care Education/Training Program
DX: E11.69 Type 2 diabetes mellitus with other specified complication (principal); K21.9 Gastro-esophageal reflux disease without esophagitis; M25.551 Pain in right hip

== ENCOUNTER → 2023-08-29 | Outpatient (CLI) | payer MEDICAID, MEDICARE | LOC: M PLARAD 12:44 | PROVIDERS: ATTEND Student in an Organized Health Care Education/Training Program | DX: M25.551 Pain in right hip (principal); N40.0 Benign prostatic hyperplasia without lower urinary tract symptoms ==

== ENCOUNTER → 2024-01-06 | Outpatient (REF) | payer MEDICARE | LOC: M SFHCPLAZ 19:01 | PROVIDERS: ATTEND Family Medicine | DX: R53.83 Other fatigue (principal); E11.69 Type 2 diabetes mellitus with other specified complication; N40.0 Benign prostatic hyperplasia without lower urinary tract symptoms ==

== ENCOUNTER 2024-01-17 17:21 | Emergency (ER) | payer MEDICARE ==
[~2024-01-17] VITALS: Ht 165.1 cm; Wt 111.4 kg
[2024-01-17 17:22] VITALS: TEMP 98.5; O2SAT 97
[2024-01-17 20:37] VITALS: BP 135/62
== END 2024-01-17 20:38 | disposition home or self-care (01) ==
LOC: M ED 17:21
DX: R22.1 Localized swelling, mass and lump, neck (principal); E11.9 Type 2 diabetes mellitus without complications; I10 Essential (primary) hypertension; E78.5 Hyperlipidemia, unspecified; Z79.84 Long term (current) use of oral hypoglycemic drugs; Z79.899 Other long term (current) drug therapy

== ENCOUNTER → 2024-01-28 | Outpatient (CLI) | payer MEDICARE ==
[2024-01-28 09:32] LABS: BASO % 0.4 % (0.0-1.0); EOS # 0.2 10^3/uL (0.0-0.5); EOS % 2.2 % (0.0-3.0); HEMATOCRIT 43.5 % (42.0-52.0); HEMOGLOBIN 14.8 g/dl (13.5-17.5); LYMPH # 2.6 10^3/uL (1.5-5.0); LYMPH % 24.7 % (24.0-44.0); MEAN CORPUSCULAR HEMOGLOBIN 29.9 pg (27.0-33.0); MEAN CORPUSCULAR VOLUME 87.9 fl (80.0-96.0); MONO # 0.8 10^3/uL (0.0-0.8); MONO % 7.3 % (2.0-8.0); NEUTROPHILS # 6.9 10^3/uL (1.5-8.5); PLATELET COUNT, AUTOMATED 209 10^3/uL (150-450); RED BLOOD COUNT 4.95 10^6/uL (4.30-6.10); WHITE BLOOD COUNT 10.6 10^3/uL (4.0-10.0)
[2024-01-28 09:54] LABS: CHOLESTEROL RISK RATIO 3.28 (<5); HDL CHOLESTEROL 34.7 MG/DL (>40); LDL CHOLESTEROL 47.7 MG/DL (<100); NON-HDL-C 79.3 MG/DL
[2024-01-28 09:55] LABS: PSA SCREENING 1.09 NG/ML (< 4.00)
[2024-01-28 09:59] LABS: FREE T4 1.1 NG/DL (0.89-1.76); THYROID STIMULATING HORMONE 1.532 uIU/ML (0.55-4.78)
[2024-01-28 10:03] LABS: HEMOGLOBIN A1c 9.4 % (4.0-6.0)
== END ==
LOC: M LAB 09:03
DX: E11.9 Type 2 diabetes mellitus without complications (principal); Z12.5 Encounter for screening for malignant neoplasm of prostate
CPT/HCPCS: 36415; 80061; 83036; 84439; 84443; 85025; G0103

== ENCOUNTER → 2024-04-12 | Outpatient (CLI) | payer MEDICAID, MEDICARE | LOC: M PLAIMG 07:46 | DX: M54.59 Other low back pain (principal) ==

== ENCOUNTER 2024-05-17 07:21 | Day surgery (SDC) | payer MEDICARE ==
[~2024-05-17] VITALS: Ht 165.1 cm; Wt 104.3 kg
[~2024-05-17 07:21] MED LIST changes: -ATOR80TA59; +ATOR80TA59 PO; +DULA3PEN; +ECOT81TA5 PO; +FARX1TAB3 PO; +LANTINJ4 SC; -LISI5TAB11; +LISI5TAB11 PO
[2024-05-17] MEDS ORDERED: LIDOCAINE 2% 100MG/5ML SDV (FOR ANES.) As Ordered ONE (09:17)
[2024-05-17] MEDS ORDERED: propofoL 200 MG/20 ML VIAL As Ordered ONE (09:17)
[2024-05-17 09:32] VITALS: TEMP 97.1
[2024-05-17 09:52] VITALS: BP 117/65; O2SAT 97
== END 2024-05-17 09:58 | disposition home or self-care (01) ==
LOC: M OPP 07:21
PROVIDERS: ATTEND Internal Medicine Gastroenterology
DX: Z12.11 Encounter for screening for malignant neoplasm of colon (principal); D12.2 Benign neoplasm of ascending colon; K64.0 First degree hemorrhoids; K57.30 Diverticulosis of large intestine without perforation or abscess without bleeding; I10 Essential (primary) hypertension; E78.5 Hyperlipidemia, unspecified; E11.9 Type 2 diabetes mellitus without complications; M19.90 Unspecified osteoarthritis, unspecified site; Z79.4 Long term (current) use of insulin; Z79.82 Long term (current) use of aspirin; Z79.84 Long term (current) use of oral hypoglycemic drugs; Z79.85 Long-term (current) use of injectable non-insulin antidiabetic drugs; Z79.899 Other long term (current) drug therapy

== ENCOUNTER → 2024-06-21 | Outpatient (CLI) | payer MEDICARE, MEDICAID ==
[2024-06-21 18:08] LABS: HEMOGLOBIN A1c 9.2 % (4.0-6.0)
== END ==
LOC: M PLALAB 14:16
PROVIDERS: ATTEND Student in an Organized Health Care Education/Training Program
DX: E11.9 Type 2 diabetes mellitus without complications (principal)

== ENCOUNTER → 2024-08-18 | Outpatient (REF) | payer MEDICARE | LOC: M SFHCPLAZ 19:26 | PROVIDERS: ATTEND Student in an Organized Health Care Education/Training Program | DX: I10 Essential (primary) hypertension (principal); Z53.9 Procedure and treatment not carried out, unspecified reason ==

== ENCOUNTER → 2024-12-15 | Outpatient (CLI) | payer MEDICARE ==
[2024-12-15 14:07] LABS: HEMATOCRIT 41.9 % (42.0-52.0); HEMOGLOBIN 13.8 g/dl (13.5-17.5); MEAN CORPUSCULAR HEMOGLOBIN 29.3 pg (27.0-33.0); MEAN CORPUSCULAR HGB CONC 32.9 g/dl (32.0-36.5); PLATELET COUNT, AUTOMATED 252 10^3/uL (150-450); RED BLOOD COUNT 4.71 10^6/uL (4.30-6.10); WHITE BLOOD COUNT 7.7 10^3/uL (4.0-10.0)
[2024-12-15 14:11] LABS: ALKALINE PHOSPHATASE 70 U/L (40-129); ALT/SGPT 24 U/L (7.0-40); AST/SGOT 24 U/L (<34); BILIRUBIN,TOTAL 0.6 MG/DL (0.3-1.2); BLOOD UREA NITROGEN 17 MG/DL (9-23); CALCIUM LEVEL 9.7 MG/DL (8.3-10.6); CARBON DIOXIDE LEVEL 24 MMOL/L (20-31); CHLORIDE LEVEL 105 MMOL/L (98-107); CHOLESTEROL LEVEL 81 MG/DL (<200); CHOLESTEROL RISK RATIO 2.53 (<5); CREATININE FOR GFR 0.81 MG/DL (0.70-1.30); GLOMERULAR FILTRATION RATE > 90.0 (>49); GLUCOSE, FASTING 148 MG/DL (74-106); LDL CHOLESTEROL 28.6 MG/DL (<100); POTASSIUM SERUM 4.3 MMOL/L (3.5-5.1); SODIUM LEVEL 139 MMOL/L (136-145); TRIGLYCERIDES LEVEL 102 MG/DL (<150)
[2024-12-15 14:18] LABS: HEMOGLOBIN A1c 8.2 % (4.0-6.0)
== END ==
LOC: M PLALAB 09:28
PROVIDERS: ATTEND Student in an Organized Health Care Education/Training Program
DX: E11.65 Type 2 diabetes mellitus with hyperglycemia (principal); I10 Essential (primary) hypertension; E78.1 Pure hyperglyceridemia

== ENCOUNTER → 2025-03-01 | Outpatient (CLI) | payer MEDICARE ==
[~2025-03-01] MED LIST changes: -IBUP-1022 PO; +IBUP600T42 PO
[2025-03-01 12:50] LABS: ESTIMATED AVERAGE GLUCOSE 194.0 MG/DL (60-110)
== END ==
LOC: M LAB 10:40
PROVIDERS: ATTEND Student in an Organized Health Care Education/Training Program
DX: E11.9 Type 2 diabetes mellitus without complications (principal)

== ENCOUNTER → 2025-06-14 | Outpatient (CLI) | payer MEDICARE, MEDICAID ==
[2025-06-14 10:49] LABS: ESTIMATED AVERAGE GLUCOSE 177.0 MG/DL (60-110)
[2025-06-14 10:53] LABS: CREATININE, URINE 200.6 MG/DL; MALB URINE SIEMENS 13.0 MG/L; MAU/CREAT RATIO 6.4 MCG/MG (0.0-30.0)
== END ==
LOC: M PLALAB 08:42
PROVIDERS: ATTEND Student in an Organized Health Care Education/Training Program
DX: E11.65 Type 2 diabetes mellitus with hyperglycemia (principal)